=== PATIENT | male | born 1965 | race Hispanic/Latino ===

== ENCOUNTER 2020-08-11 22:03 | Observation (INO) | payer BC ==
[~2020-08-11] VITALS: Ht 175.3 cm; Wt 98.7 kg
[2020-08-11] MEDS ORDERED: NITROGLYCERIN 0.4 MG SUBL SL ONE (22:30)
[2020-08-11 22:39] LABS: BASOPHILS # (AUTO) 0.1 (0.0-0.1); BASOPHILS % 0.5 % (0.0-1.0); EOSINOPHILS # (AUTO) 0.1 (0.0-0.4); EOSINOPHILS % 0.6 % (0.0-6.0); HEMATOCRIT 47.3 % (38.2-49.6); HEMOGLOBIN 15.4 g/dL (14.0-18.0); LYMPHOCYTES # (AUTO) 3.3 (1.0-3.2); LYMPHOCYTES % 31.9 % (18.0-39.1); MEAN CORPUSCULAR HEMOGLOBIN 28.3 pg (28-32); MEAN CORPUSCULAR HGB CONC 32.6 g/dL (31-35); MEAN CORPUSCULAR VOLUME 86.8 fL (81-99); MONOCYTES # (AUTO) 0.7 (0.2-0.8); MONOCYTES % 6.7 % (4.4-11.3); NEUTROPHILS # (AUTO) 6.2 (2.1-6.9); NEUTROPHILS % 59.9 % (38.7-80.0); PLATELET COUNT 356 x10e3/uL (140-360); RED BLOOD COUNT 5.45 x10e6/uL (4.3-5.7)
--- NOTE | 2020-08-11 22:47 | Emergency Department Note ---
History of Present Illnes History of Present Illness Chief Complaint: Hypertension History of Present Illness This is a 55 year old male arrives to the ED with complaints of chest pain and headache, concerns of high blood pressure. Patient is not on any medications . Chief Complaint Comment 55 Y/O MALE PT AAOX3 REPORTS HTN, HEADACHE, AND INTERMITTENT MIDSTERNAL CHEST PAIN X2 DAYS, DENIES ANY CP AT THIS TIME; EKG PERFORMED AND GIVEN TO ER MD FOR REVIEW; RESP ARE EVEN AND UNLABORED, O2 SAT RA 99%; SKIN WARM, DRY, COLOR WNL FOR PT; 20 GAUGE IV CATH PLACED TO PTS LEFT AC, BLOOD OBTAINED FOR LAB ANALYSIS; ER MD TO TRIAGE FOR INITIAL EVAL Historian: Patient Arrival Mode: Car Onset (how long ago): day(s) Radiation: Reports non-radiation Severity: mild Onset quality: gradual Duration (how long): day(s) Timing of current episode: constant Progression: worsening Chronicity: new Past Medical/Family History Physician Review I have reviewed the patient's past medical and family history. Any updates have been documented here. Past Medical History Recent Fever: No Clinical Suspicion of Infectio: No New/Unexplained Change in Ment: No Past Medical History: Hypertension Other Medical History: COVID 05/2020 Past Surgical History: Appendectomy Social History Smoking Cessation: Never Smoker Counseling Performed: No Alcohol Use: None Any Illegal Drug Use: No Other Any Pre-Existing Lines (PICC,: No Review of Systems Review of Systems Constitutional: Reports as per HPI EENTM: Reports no symptoms Cardiovascular: Reports as per HPI, Reports chest pain Respiratory: Reports no symptoms Gastrointestinal: Reports no symptoms Genitourinary: Reports no symptoms Musculoskeletal: Reports no symptoms Integumentary: Reports no symptoms Neurological: Reports as per HPI, Reports headache Psychological: Reports no symptoms Endocrine: Reports no symptoms Hematological/Lymphatic: Reports no symptoms Physical Exam Related Data Triage Vital Signs Vital Signs Date Time Temp Pulse Resp B/P (MAP) Pulse Ox O2 Delivery O2 Flow Rate FiO2 08/11/20 22:26 98.2 54 17 209/104 98 Room Air Vital signs reviewed: Yes Physical Exam CONSTITUTIONAL Constitutional: Present well-developed, Present well-nourished HENT HENT: Present normocephalic, Present atraumatic, Present oropharynx clear/moist, Present nose normal HENT L/R: Present left ext ear normal, Present right ext ear normal EYES Eyes: Reports PERRL, Reports conjunctivae normal NECK Neck: Present ROM normal PULMONARY Pulmonary: Present effort normal, Present breath sounds normal CARDIOVASCULAR Cardiovascular: Present regular rhythm, Present heart sounds normal, Present capillary refill normal, Present normal rate GASTROINTESTINAL Abdominal: Present soft, Present nontender, Present bowel sounds normal GENITOURINARY Genitourinary: Present exam deferred SKIN Skin: Present warm, Present dry MUSCULOSKELETAL Musculoskeletal: Present ROM normal NEUROLOGICAL Neurological: Present alert, Present oriented x 3, Present no gross motor or sensory deficits PSYCHOLOGICAL Psychological: Present mood/affect normal, Present judgement normal Results Laboratory Result Diagram: 08/11/20 2228 Laboratory Laboratory Tests Test 08/11/20 22:28 White Blood Count 10.31 x10e3/uL (4.8-10.8) Red Blood Count 5.45 x10e6/uL (4.3-5.7) Hemoglobin 15.4 g/dL (14.0-18.0) Hematocrit 47.3 % (38.2-49.6) Mean Corpuscular Volume 86.8 fL (81-99) Mean Corpuscular Hemoglobin 28.3 pg (28-32) Mean Corpuscular Hemoglobin Concent 32.6 g/dL (31-35) Red Cell Distribution Width 14.0 % (11.7-14.4) Platelet Count 356 x10e3/uL (140-360) Neutrophils (%) (Auto) 59.9 % (38.7-80.0) Lymphocytes (%) (Auto) 31.9 % (18.0-39.1) Monocytes (%) (Auto) 6.7 % (4.4-11.3) Eosinophils (%) (Auto) 0.6 % (0.0-6.0) Basophils (%) (Auto) 0.5 % (0.0-1.0) Neutrophils # (Auto) 6.2 (2.1-6.9) Lymphocytes # (Auto) 3.3 (1.0-3.2) Monocytes # (Auto) 0.7 (0.2-0.8) Eosinophils # (Auto) 0.1 (0.0-0.4) Basophils # (Auto) 0.1 (0.0-0.1) Absolute Immature Granulocyte (auto 0.04 x10e3/uL (0-0.1) Lab results reviewed: Yes Procedures 12 Lead ECG Interpretation ECG Interpretation : ECG: ECG 1 Prior ECG tracings: reviewed Rhythm: sinus rhythm Ectopy: PVC's Rate: normal QRS axis: normal ST segments normal: Yes T waves normal: Yes Clinical Impression: normal ECG Assessment & Plan Medical Decision Making MDM 55-year-old male arrives to the ED with complaints of chest pain high blood pressure and headache. Patient noted to show signs that were concerning for hypertensive urgency. Patient admitted to hospital for cardiac optimization and serial cardiac markers. Assessment & Plan Final Impression: (1) Chest pain (2) Hypertensive urgency Depart Disposition: ADMITTED Last Vital Signs Date Time Temp Pulse Resp B/P (MAP) Pulse Ox O2 Delivery O2 Flow Rate FiO2 08/11/20 22:26 98.2 54 17 209/104 98 Room Air Medications in the ED Nitroglycerin 0.4 mg NOW ONCE SL ; Start 08/11/20 at 22:30; Stop 08/11/20 at 22:32; Status DC SAFIA LEON DO Aug 11, 2020 22:47
[2020-08-11 23:00] LABS: ALKALINE PHOSPHATASE 113 IU/L (40-150); ANION GAP 16.6 mmol/L (8-16); BLOOD UREA NITROGEN 15 mg/dL (7-26); BUN/CREATININE RATIO 16 (6-25); CALCIUM 9.8 mg/dL (8.4-10.2); CARBON DIOXIDE 25 mmol/L (22-29); CHLORIDE 102 mmol/L (98-107); CREATINE KINASE 392 IU/L (30-200); CREATININE, SERUM 0.96 mg/dL (0.72-1.25); EST GLOMERULAR FILTRATION RATE > 60 ML/MIN (60-); GLUCOSE 131 mg/dL (74-118); POTASSIUM 3.6 mmol/L (3.5-5.1); SODIUM 140 mmol/L (136-145)
[2020-08-11 23:03] LABS: ALANINE AMINOTRANSFERASE < 6 IU/L (0-55); ALBUMIN < 0.4 g/dL (3.5-5.0)
[2020-08-11] MEDS ORDERED: HYDRALAZINE HCL 20 MG/ML VIAL IV STA (23:15)
--- NOTE | 2020-08-11 23:18 | Diagnostic Imaging Report ---
EXAMINATION: CHEST SINGLE (PORTABLE) INDICATION: ^Y ^cp ^[id number] ^[id number] COMPARISON: None FINDINGS: AP view TUBES and LINES: None. LUNGS: Lungs are well inflated. There is no evidence of pneumonia or pulmonary edema. PLEURA: No pleural effusion or pneumothorax. HEART AND MEDIASTINUM: The cardiomediastinal silhouette is unremarkable. BONES AND SOFT TISSUES: No acute osseous lesion. Soft tissues are unremarkable. UPPER ABDOMEN: No free air under the diaphragm. IMPRESSION: No acute thoracic abnormality. Signed by: Dr. Gallo Knowles MD on 08/11/2020 11:15 PM
[2020-08-11] MEDS ORDERED: HYDRALAZINE HCL 20 MG/ML VIAL ONE (23:24)
--- NOTE | 2020-08-11 23:54 | Diagnostic Imaging Report ---
History: Light headedness Comparison studies: None Technique: Axial images were obtained from the skull base to the vertex. Coronal and sagittal reconstructions obtained from the axial data. Dose modulation, iterative reconstruction, and/or weight based adjustment of the mA/kV was utilized to reduce the radiation dose to as low as reasonably achievable. Intravenous contrast: None Findings: Scalp/skull: No abnormalities. No fractures, blastic or lytic lesions. Extra-axial spaces: No masses. No fluid collections. Brain sulci: Appropriate for age. Ventricles: Normal in size and configuration. No hydrocephalus. Parenchyma: No abnormal densities. No masses, hemorrhage, acute or chronic cortical vascular insults. Sellar/suprasellar region: No abnormalities Craniocervical junction: Patent foramen magnum. No Chiari one malformation. Incidental findings: None. IMPRESSION: No abnormalities. Signed by: Dr. Florentin Dewitt M.D. on 08/11/2020 11:50 PM
[2020-08-12] VITALS (10 sets, daily range): BP systolic 136–165; BP diastolic 86–100
[2020-08-12] MEDS ORDERED: ASPIRIN 81 MG CHEW TAB PO ONE
--- OUTSIDE RECORDS SUMMARY | 2020-08-12 00:18 | XMS REPORT | Continuity of Care Document ---
Author Author [facility] Organization [facility] Address [address] [place] [phone] Phone Unavailable Care Team Providers Care Assembler Body Name Role Phone Dieter LEON Attphydieter Unavailable Problems This patient has no known problems. Allergies, Adverse Reactions, Alerts This patient has no known allergies or adverse reactions. Medications This patient has no known medications. Procedures This patient has no known procedures. Results Test Description Test Time Test Comments Results Result Comments Source CT BRAIN WO 2020-08-11 23:49:00 [facility] 1965 Sex: M [facility] [address] [place] [address] Patient Name: REMI CARRION MR #: [id number] : 1965 Age/Sex: 55/M Req #: [id number] [facility] Physician: Ordered by: SFAIA LEON DO Report #: [id number] Location: ER Room/Bed: Procedure: [id number] CT/CT BRAIN WO Exam Date: 08/11/20 Exam Time: 4 REPORT STATUS: Signed History: Light headedness Comparison studie s: None Technique: Axial images were obtained from the skull base to the vertex. Coronal and sagittal reconstructions obtained from the axial data. Dose modulation, iterative reconstruction, and/or weight based adjustment of the mA/kV was utilized to reduce the radiation dose to as low as reasonably achievable. Intravenous contrast: None Findings: Scalp/skull: No abnormalities. No fractures, blastic or lytic lesions. Extra-axial spaces: No masses. No fluid collections. Brain sulci: Appropriate for age. Ventricles: Normal in size and configuration. No hydrocephalus. Parenchyma: No abnormal densities. No masses, hemorrhage, acute or chronic cortical vascular insults. Sellar/suprasellar region: No abnormalities Craniocervical junction: Patent foramen magnum. No Chiari one malformation. Incidental findings: None. IMPRESSION: No abnormalities. Signed by: Dr. Florentin Dewitt M.D. on 08/11/2020 11:50 PM Dictated By: FLORENTIN DEWITT MD, MD 49 Transcribed By: KATYA on 08/11/202349 COPY TO: SAFIA LEON DO [facility] SINGLE (PORTABLE) 2020-08-11 23:14:00 [facility] : 1965 Sex: M [facility] [address] [address] Patient Name: REMI CARRION MR #: [id number] : 1965 Age/Sex: 55/M Req #: [id number] Adm Physician: Ordered by: SAFIA LEON DO Report #: [id number] Location: ER Room/Bed: Procedure: [id number] DX/CHEST SINGLE (PORTABLE) Exam Date: 08/11/20 Exam Time: 2254 REPORT STATUS: Signed EXAMINATION: CHEST SINGLE (PORTABLE) INDICATION: Y cp [id number] COMPARISON: None FINDINGS: AP view TUBES and LINES: None. LUNGS: Lungs are well inflated. There is no evidence of pneumonia or pulmonary edema. PLEURA: No pleural effusion or pneumothorax. HEART AND MEDIASTINUM: The cardiomediastinal silhouette is unremarkable. BONES AND SOFT TISSUES: No acute osseous lesion. Soft tissues are unremarkable. UPPER ABDOMEN: No free air under the diaphragm. IMPRESSION: No acute thoracic abnormality. Signed by: Dr. Gallo Correia MD on 08/11/2020 11:15 PM Dictated By: GALLO CORREIA MD 14 Transcribed By: KATYA on 08/11/202314 COPY TO: SAFIA LEON DO
--- OUTSIDE RECORDS SUMMARY | 2020-08-12 00:23 | XMS REPORT | Continuity of Care Document ---
Author Author [facility] Organization [facility] Address [address] [place] [phone] Phone Unavailable Care Team Providers Care Vibrating Screen Operator Name Role Phone Dieter LEON Attphydieter Unavailable Problems This patient has no known problems. Allergies, Adverse Reactions, Alerts This patient has no known allergies or adverse reactions. Medications This patient has no known medications. Procedures This patient has no known procedures. Results Test Description Test Time Test Comments Results Result Comments Source CT BRAIN WO 2020-08-11 23:49:00 [facility] : 1965 Sex: M [facility] [address] [place] [address] Patient Name: REMI CARRION MR #: [id number] : 1965 Age/Sex: 55/M Req #: [id number] [facility] Physician: Ordered by: SAFIA LEON DO Report #: [id number] Location: ER Room/Bed: Procedure: [id number] CT/CT BRAIN WO Exam Date: 08/11/20 Exam [...] on 08/11/202349 COPY TO: SAFIA LEON DO [facility] SINGLE (PORTABLE) 2020-08-11 23:14:00 [facility] : 1965 Sex: M [facility] [address] [address] Patient Name: REMI CARRION MR #: [id number] : 1965 Age/Sex: 55/M Req #: [id number] Adm Physician: Ordered by: SAFIA LEON DO Report #: [id number] Location: ER Room/Bed: Procedure: [id number] DX/CHEST SINGLE (PORTABLE) Exam Date: 08/11/20 Exam [...]
[2020-08-12] MEDS ORDERED: HYDRALAZINE HCL 20 MG/ML VIAL IV PRN (00:45)
--- NOTE | 2020-08-12 01:52 | NUR ---
PT IS TRANSFERRED FROM ER AOX3 ,RESPIRATIONS ARE EVEN AND UNLABORED SKIN INTACT DENIES CHEST PAIN NOW LEFT AC 20 G S/L ASSESSMENT DONE .ORIENTED THE PT TO THE ENVIRONMENT PT HAS NO HOME MEDICATION CALL LIGHT WITH IN REACH BED IN THE LOW POSITION .CONTINUE TO MONITOR
--- NOTE | 2020-08-12 06:13 | NUR ---
PT RESTING DENIES CHEST PAIN .CALL LIGHT WITH IN REACH ,CONTINUE TO MONITOR
--- NOTE | 2020-08-12 06:37 | NUR ---
H&P cc: cp HPI: 55yoM, PCP none, developed cp with ORR and elevated BP 188/103 at home. PMH: obesity, HTN PSHx: appendectomy Allergies; see emr Fh/>SH; ; no cigs meds; see MAR ROS: no f/c/s/N/V/D/skin rash/confusion/leg pain/sob/vision chnages v/s; revd PE tired appearing anicteric ns1s2 mod bs soft nt nd no e/t skin dry n. affect a&ox3; michelle labs/med revd A/P: Hypertensive emergency with ORR- start BB/CCB/ASA ORR- use prn meds Atypical CP- trend enzymes; control BP Obesity- reduce portion sizes outpt; check hab1c/lipids BMI 32 Prop: lovenox; pepcid dispo; f/u albs PATRICIA TONY MD, PHD.
[2020-08-12] MEDS ORDERED: DOCUSATE SODIUM 100 MG CAP PO PRN (06:45)
[2020-08-12] MEDS ORDERED: ZOLPIDEM TARTRATE 5 MG TAB PO PRN (06:45)
[2020-08-12] MEDS ORDERED: ONDANSETRON HCL INJ 2MG/ML 2ML 2 MG/ML VIAL IV PRN (06:45)
[2020-08-12 06:51] LABS: BASOPHILS % 0.3 % (0.0-1.0); EOSINOPHILS % 0.2 % (0.0-6.0); HEMATOCRIT 44.1 % (38.2-49.6); HEMOGLOBIN 14.9 g/dL (14.0-18.0); LYMPHOCYTES # (AUTO) 1.7 (1.0-3.2); MEAN CORPUSCULAR HEMOGLOBIN 28.7 pg (28-32); MEAN CORPUSCULAR HGB CONC 33.8 g/dL (31-35); MONOCYTES # (AUTO) 0.9 (0.2-0.8); MONOCYTES % 7.6 % (4.4-11.3); NEUTROPHILS # (AUTO) 8.8 (2.1-6.9); NEUTROPHILS % 76.5 % (38.7-80.0); PLATELET COUNT 330 x10e3/uL (140-360); RED BLOOD COUNT 5.19 x10e6/uL (4.3-5.7); RED CELL DISTRIBUTION WIDTH 13.8 % (11.7-14.4)
[2020-08-12] MEDS: ACETAMINOPHEN 325 MG TAB PO PRN (07:00)
[2020-08-12 07:11] LABS: ALANINE AMINOTRANSFERASE 110 IU/L (0-55); ALBUMIN 4.2 g/dL (3.5-5.0); ALBUMIN/GLOBULIN RATIO 1.2 (0.8-2.0); ALKALINE PHOSPHATASE 91 IU/L (40-150); ANION GAP 11.9 mmol/L (8-16); BLOOD UREA NITROGEN 11 mg/dL (7-26); BUN/CREATININE RATIO 13 (6-25); CALCIUM 9.1 mg/dL (8.4-10.2); CARBON DIOXIDE 27 mmol/L (22-29); CHLORIDE 103 mmol/L (98-107); CREATININE, SERUM 0.86 mg/dL (0.72-1.25); EST GLOMERULAR FILTRATION RATE > 60 ML/MIN (60-); GLUCOSE 123 mg/dL (74-118); POTASSIUM 3.9 mmol/L (3.5-5.1); SODIUM 138 mmol/L (136-145)
[2020-08-12 07:17] LABS: CREATINE KINASE MB 7.5 ng/mL (0-5.0)
--- NOTE | 2020-08-12 07:26 | NUR ---
BEDSIDE REPORT GIVEN TO ONCOMING NURSE FOR CONTINUED CARE OF PATIENT
[2020-08-12 07:36] LABS: CHOL/HDL RATIO 4.6 (3.9-4.7)
[2020-08-12] MEDS: ACETAMIN/BUTALBITAL/CAFFEINE TAB PO SCH ×2 (11:18→21:45)
[2020-08-12] MEDS: FAMOTIDINE 20 MG TAB PO SCH ×2 (11:22→18:35)
[2020-08-12] MEDS: ASPIRIN 81 MG CHEW TAB PO SCH (11:23)
[2020-08-12] MEDS: METOPROLOL TARTRATE 25 MG TAB PO SCH ×2 (11:23→18:35)
[2020-08-12] MEDS: NIFEDIPINE CR 30 MG TAB PO SCH ×2 (11:24→21:45)
[2020-08-12] MEDS ORDERED: ENOXAPARIN SOD INJ 40 MG/0.4 ML SYR SC SCH (17:00)
[2020-08-12 17:14] LABS: CREATINE KINASE MB 6.8 ng/mL (0-5.0)
--- NOTE | 2020-08-12 19:00 | NUR ---
RECEIVED PATIENT IN BEDSIDE SHIFT REPORT. PATIENT RESTING IN BED AT THIS TIME. PAIN BEHIND L EYE, CURRENTLY 4/10, BUT FLUCTUATES GREATLY IN SHORT PERIODS OF TIME. OTHERWISE, NO PAIN REPORTED. NO S&S OF DISTRESS NOTED. BED LOCKED IN LOWEST POSITION, SIDE RAILS UPX2, CALL LIGHT IN REACH.
--- NOTE | 2020-08-12 19:29 | NUR ---
spoke with Dr. Toussaint concerning pt's complaint of throbbing headache behind left eye. Dr. toussaint states give pt one time dose of 0.5mg Dilaudid then call MD back and notify him of pt's response.
--- NOTE | 2020-08-12 19:30 | NUR ---
bedside shift report given to PM nurse; informed oncoming nurse of new orders. pt in stable condition.
[2020-08-12] MEDS ORDERED: HYDROMORPHONE 1MG/1ML INJ IV ONE (19:50)
--- NOTE | 2020-08-12 20:55 | NUR ---
SPOKE WITH MD TONY, DILAUDID RELIEVED HEADACHE FROM 8 TO 5, NEW ORDER FOR DILAUDID PRN, ORDER ENTERED.
[2020-08-12] MEDS ORDERED: HYDROMORPHONE 1MG/1ML INJ IV PRN (21:00)
[2020-08-13] VITALS: BP 117/71
[2020-08-13 04:00] VITALS: BP 129/93
[2020-08-13] MEDS: ACETAMINOPHEN 325 MG TAB PO PRN (04:30)
--- NOTE | 2020-08-13 06:41 | NUR ---
D/C summary Principal dx: Hypertensive emergency with ORR- start BB/CCB/ASA PreDM- hab1c 5.7 HLD- LDL 117- treat. ORR- use prn meds Atypical CP- trend enzymes; control BP Seocondary dx: Obesity- reduce portion sizes outpt; check hab1c/lipids BMI 32 Prop: lovenox; pepcid dispo; f/u albs d/c home stable f/u this week d/c>35mins PATRICIA TONY MD, PHD.
[2020-08-13] MEDS ORDERED: ASPIRIN CHEW81 MG PO (06:43)
[2020-08-13] MEDS ORDERED: LOPRESSOR25 MG PO (06:43)
[2020-08-13] MEDS ORDERED: FIORICET 50-301 EACH PO (06:43)
[2020-08-13] MEDS ORDERED: NIFEDIPINE ER30 M1 PO (06:43)
[2020-08-13 07:39] VITALS: BP 115/73
[2020-08-13 08:12] VITALS: BP 115/73
[2020-08-13] MEDS: ASPIRIN 81 MG CHEW TAB PO SCH (09:38)
[2020-08-13] MEDS: FAMOTIDINE 20 MG TAB PO SCH (09:38)
[2020-08-13] MEDS: NIFEDIPINE CR 30 MG TAB PO SCH (09:39)
[2020-08-13] MEDS: METOPROLOL TARTRATE 25 MG TAB PO SCH (09:39)
[2020-08-13] MEDS: ACETAMIN/BUTALBITAL/CAFFEINE TAB PO SCH (09:41)
== END 2020-08-13 09:50 | disposition home or self-care (01) ==
LOC: ER 22:32 → ERHOLD 08-12 00:19 → MED/SURG 08-12 01:09
PROVIDERS: ADMIT Internal Medicine; ATTEND Internal Medicine
DX: R07.89 Other chest pain (principal); I16.0 Hypertensive urgency
CPT/HCPCS: 36415 ×2; 70450; 71045; 80053 ×2; 80061; 82550 ×2; 82553 ×2; 83036; 84484 ×2; 85025 ×2; 93005; 99284; G0378 ×2; J0360; J1170; J1650; U0002